=== PATIENT | male | born 1970 | race Caucasian/White ===

== ENCOUNTER → 2020-07-22 | Day surgery (SDC) | payer OTHER ==
[2020-07-23 08:14] LABS: ALPHA-1-ANTITRYPSIN, SERUM 147 mg/dL (101-187)
[2020-07-23 11:14] LABS: HBSAG SCREEN Positive (Negative); HEP A AB, IGM Negative (Negative); HEP B CORE AB, IGM Indeterminate (Negative); HEP C VIRUS AB <0.1 (0.0-0.9)
[2020-07-23 14:14] LABS: MITOCHONDRIAL (M2) ANTIBODY <20.0 Units (0.0-20.0)
== END | disposition home or self-care (01) ==
LOC: OR 07:06
PROVIDERS: Internal Medicine Gastroenterology
PROC: 0DBL8ZX Excision of Transverse Colon, Via Natural or Artificial Opening Endoscopic, Diagnostic (ICD-10-PCS; 2020-07-22)
PROC: 0DBH8ZX Excision of Cecum, Via Natural or Artificial Opening Endoscopic, Diagnostic (ICD-10-PCS; 2020-07-22)
PROC: 0DBK8ZX Excision of Ascending Colon, Via Natural or Artificial Opening Endoscopic, Diagnostic (ICD-10-PCS; principal; 2020-07-22 10:30)
DX: Z12.11 Encounter for screening for malignant neoplasm of colon (principal); D12.2 Benign neoplasm of ascending colon; D12.0 Benign neoplasm of cecum; D12.3 Benign neoplasm of transverse colon; K64.1 Second degree hemorrhoids; R94.5 Abnormal results of liver function studies; K70.30 Alcoholic cirrhosis of liver without ascites; I48.91 Unspecified atrial fibrillation; Z20.822 Contact with and (suspected) exposure to COVID-19; F17.210 Nicotine dependence, cigarettes, uncomplicated; J44.9 Chronic obstructive pulmonary disease, unspecified; Z86.010 Personal history of colon polyps
CPT/HCPCS: 36415; 80074; 80076; 82103; 82728; 83540; 83550; 86038; J2704; J7040